=== PATIENT | female | born 1955 | race Caucasian/White ===

== ENCOUNTER 2020-03-13 11:14 | Emergency (ER) | payer SELFPAY ==
[~2020-03-13] VITALS: Ht 170.2 cm; Wt 86.2 kg
--- NOTE | 2020-03-13 11:17 | NUR ---
BIBA TAKEN TO BED 6
[2020-03-13 11:21] VITALS: BP 181/93
--- NOTE | 2020-03-13 11:30 | NUR ---
TUNA SANDWICH WITH WHEAT BREAD AND APPLE JUICE GIVEN TO PATIENT FOR MEAL
--- NOTE | 2020-03-13 11:38 | NUR ---
64 Y/O FEMALE BIBA D/T HYPOGLYCEMIC EPISODE AT HOME. [facility] STATES BLOOD SUGAR WAS 27 ON SCENE, D10 INJ GIVEN ON SCENE. PT IS AAOX4. UPON ARRIVAL TO ER, BS READ 100. PT STATES SHE TOOK 45 UNITS OF INSULIN THIS MORNING WITHOUT EATING BREAKFAST, LAST MEAL WAS AT [employer]. NEGATIVE PRONATOR DRIFT. LEFT PUPIL HAS DELAYED RESPONSE D/T PREVIOUS CVA. BILAT EQUAL WELT SEWER STRENGTH. PT STATES SHE FEELS SLIGHTLY DIZZY BUT DENIES ANY PAIN. RESP EVEN AND UNLABORED, LUNG SOUND CLEAR IN BILAT LOBES PMH: DM, HTN NKA
[2020-03-13 11:49] LABS: BASOPHILS # (AUTO) 0.1 K/uL (0.00-0.22); BASOPHILS % (AUTO) 0.6 % (0.0-2.0); EOSINOPHILS % (AUTO) 0.5 % (0.0-4.0); HEMATOCRIT 38.9 % (36-48); HEMOGLOBIN 12.4 g/dL (12.0-16.0); LYMPHOCYTES # (AUTO) 1.9 K/uL (2.5-16.5); LYMPHOCYTES % (AUTO) 20.9 % (20.5-51.1); MEAN CORPUSCULAR HEMOGLOBIN 28 pg (27-31); MEAN CORPUSCULAR HGB CONC 32 g/dL (33-37); MEAN CORPUSCULAR VOLUME 86.5 fL (80-94); MONOCYTES # (AUTO) 0.6 K/uL (0.8-1.0); MONOCYTES % (AUTO) 6.2 % (1.7-9.3); NEUTROPHILS # (AUTO) 6.5 K/uL (1.8-7.7); NEUTROPHILS % (AUTO) 71.8 % (42.2-75.2); PLATELET COUNT (AUTO) 307 K/uL (140-450); RED CELL DISTRIBUTION WIDTH 13.6 % (11.6-13.7)
--- NOTE | 2020-03-13 11:52 | NUR ---
PT TAKEN TO RESTROOM IN WHEELCHAIR TO PROVIDE URINE SAMPLE
[2020-03-13 12:46] LABS: ANION GAP 20.3 (8-16); CARBON DIOXIDE 22.2 mmol/L (21-32); CREATININE 1.2 mg/dL (0.6-1.3); POTASSIUM 3.5 mmol/L (3.5-5.1)
[2020-03-13 12:47] LABS: ALBUMIN 3.5 g/dL (3.4-5.0); TOTAL BILIRUBIN 0.2 mg/dL (0.0-1.0)
--- NOTE | 2020-03-13 12:58 | NUR ---
PT IS RESTING IN BED, AROUSABLE TO VOICE. RESP EVEN AND UNLABORED. VSS. ALL NEEDS ARE MET AT THIS TIME
[2020-03-13 14:17] VITALS: BP 161/87
--- NOTE | 2020-03-13 14:17 | NUR ---
Patient discharged with v/s stable. Written and verbal after care instructions given and explained. Patient verbalized understanding. Ambulatory with steady gait. All questions addressed prior to discharge. Advised to follow up with PMD.
== END 2020-03-13 14:17 | disposition home or self-care (01) ==
LOC: MED 11:14
DX: E11.649 Type 2 diabetes mellitus with hypoglycemia without coma (principal); I10 Essential (primary) hypertension; Z98.51 Tubal ligation status
CPT/HCPCS: 36415; 80053; 81002; 84484; 85025; 93005; 99284